=== PATIENT | male | born 1950 | race African-American/Black ===

== ENCOUNTER 2020-06-10 17:31 | Inpatient (IN) | payer MEDICARE, MEDICAID ==
[~2020-06-10] VITALS: Ht 185.4 cm; Wt 97.5 kg
[2020-06-10] MEDS ORDERED: SODIUM CHLORIDE 0.9% 1,000 ML IV ONE (17:45)
[2020-06-10] MEDS ORDERED: ONDANSETRON HCL 4MG/2ML INJ IV ONE (17:45)
[2020-06-10 19:12] LABS: HEMATOCRIT 33.9 % (42.0-52.0); HEMOGLOBIN 10.9 g/dL (14.0-18.0); MEAN CORPUSCULAR HEMOGLOBIN 27.5 pg (28.0-32.0); MEAN CORPUSCULAR VOLUME 85.8 fL (80.0-94.0); PLATELET 307 x1000/uL (130-400); RED BLOOD CELL COUNT 3.96 mill/uL (4.7-6.1); RED CELL DISTRIBUTION WIDTH 17.3 % (11.6-14.6)
[2020-06-10 19:15] LABS: CHLORIDE 105 mEq/L (98-107)
[2020-06-10] MEDS ORDERED: AMOXICILLIN/POTASSIUM CLAVULANATE 875/125MG TAB PO ONE (20:45)
[2020-06-10 21:28] LABS: CLARITY URINE CLEAR (CLEAR); COLOR URINE YELLOW (YELLOW); KETONES URINE TRACE (NEGATIVE); LEUKOCYTE ESTERASE URINE NEGATIVE (NEGATIVE); NITRITE URINE NEGATIVE (NEGATIVE); OCCULT BLOOD URINE NEGATIVE (NEGATIVE); PH URINE 5.5 (4.5-8.0); PROTEIN URINE 2+ (NEGATIVE); SPECIFIC GRAVITY URINE 1.018 (1.005-1.030)
[2020-06-10 21:43] LABS: *AMPHETAMINES SCREEN URINE NEGATIVE (NEGATIVE); *BARBITURATES SCREEN URINE NEGATIVE (NEGATIVE); *BENZODIAZEPINES SCREEN URINE NEGATIVE (NEGATIVE); *COCAINE SCREEN URINE NEGATIVE (NEGATIVE)
[2020-06-10 21:44] LABS: CANNABINOID URINE SCREEN NEGATIVE (NEGATIVE); METHADONE URINE SCREEN NEGATIVE (NEGATIVE); OPIATES URINE SCREEN PRESUMTIVE POSITIVE (NEGATIVE); PHENCYCLIDINE URINE SCREEN NEGATIVE (NEGATIVE)
[2020-06-10] MEDS ORDERED: ACETAMINOPHEN 325MG TABLET PO PRN (23:00)
[2020-06-10] MEDS ORDERED: HYDRALAZINE 20MG/ML VIAL IV PRN (23:00)
[2020-06-10] MEDS: SODIUM CHLORIDE 0.45% 1,000 ML IV SCH (23:00)
[2020-06-10] MEDS ORDERED: LORAZEPAM 2MG/ML CPJ IV PRN (23:00)
[2020-06-10] MEDS ORDERED: GUAIFENESIN 200MG/10ML SUGAR FREE UDC PO PRN (23:00)
[2020-06-10] MEDS ORDERED: DIPHENHYDRAMINE 50MG/ML VIAL IV PRN (23:00)
[2020-06-10] MEDS ORDERED: IPRATROPIUM/ALBUTEROL 0.5-3(2.5)MG/3ML NEB HHN PRN (23:00)
[2020-06-10] MEDS ORDERED: MAGNESIUM/ALUMINUM HYDROXIDE/SIMETHICONE 30ML UDC PO PRN (23:00)
[2020-06-10] MEDS ORDERED: CLONIDINE 0.1MG TABLET PO PRN (23:00)
[2020-06-10] MEDS ORDERED: ONDANSETRON HCL 4MG/2ML INJ IV PRN (23:00)
[2020-06-10] MEDS ORDERED: DOCUSATE SODIUM 100MG CAPSULE PO PRN (23:00)
[2020-06-10] MEDS ORDERED: ENOXAPARIN 40MG/0.4ML SYR SUBCUT SCH (23:30)
[2020-06-11 04:00] VITALS: BP 122/79
[2020-06-11 04:39] LABS: BASOPHILS % 0.2 % (0.0-2.0); EOSINOPHILS % 0.1 % (0.0-5.0); HEMATOCRIT. 29.9 % (42.0-52.0); HEMOGLOBIN. 9.9 g/dL (14.0-18.0); MEAN CORPUSCULAR HEMOGLOBIN 27.5 pg (28.0-32.0); MEAN CORPUSCULAR VOLUME 82.9 fL (80.0-94.0); MONOCYTES % 12.3 % (2.0-8.0); NEUTROPHILS % 79.4 % (40.0-76.0); PLATELET 258 x1000/uL (130-400); RED BLOOD CELL COUNT 3.61 mill/uL (4.7-6.1); RED CELL DISTRIBUTION WIDTH 17.4 % (11.6-14.6)
[2020-06-11 04:43] LABS: CHLORIDE 108 mEq/L (98-107)
[2020-06-11 06:00] VITALS: BP 122/79
[2020-06-11] MEDS: SODIUM CHLORIDE 0.9% INJ 3ML FLUSH IVF SCH ×3 (06:15→22:00)
[2020-06-11 08:34] VITALS: BP 105/66
[2020-06-11] MEDS: PIPERACILLIN/TAZ 3.375G PREMIX 50 ML IV SCH ×2 (10:21→18:30)
[2020-06-11 11:29] VITALS: BP 102/64
[2020-06-11] MEDS ORDERED: AMLO10TA80 MT (11:57)
[2020-06-11] MEDS ORDERED: CALC-586 MT (11:57)
[2020-06-11] MEDS ORDERED: HYDR-4134 PO (11:57)
[2020-06-11] MEDS ORDERED: HYDR25TA MT (12:00)
[2020-06-11] MEDS ORDERED: THIA50TA12 PO (12:00)
[2020-06-11] MEDS ORDERED: LEVE500T98 MT (12:00)
[2020-06-11] MEDS ORDERED: LACT10SO6 MT (12:00)
[2020-06-11 16:19] VITALS: BP 112/55
[2020-06-11] MEDS ORDERED: ENOXAPARIN 40MG/0.4ML SYR SUBCUT SCH (17:00)
[2020-06-11] MEDS: SODIUM CHLORIDE 0.45% 1,000 ML IV SCH (18:30)
[2020-06-11 20:53] VITALS: BP 111/61
[2020-06-12] MEDS: PIPERACILLIN/TAZ 3.375G PREMIX 50 ML IV SCH (02:30)
[2020-06-12] MEDS: SODIUM CHLORIDE 0.9% INJ 3ML FLUSH IVF SCH ×3 (05:10→21:22)
[2020-06-12 08:51] VITALS: BP 95/60
[2020-06-12] MEDS ORDERED: ENOXAPARIN 30MG/0.3ML SYR SUBCUT SCH (09:00)
[2020-06-12] MEDS: PIPERACILLIN/TAZOBACTAM 3.375 G in DEXT 5% WATER 100 ML IV SCH ×2 (11:18→17:33)
[2020-06-12] MEDS ORDERED: PIPERACILLIN/TAZ 3.375G PREMIX 50 ML IV SCH (12:00)
[2020-06-12 12:19] VITALS: BP 95/61
[2020-06-12] MEDS: SODIUM CHLORIDE 0.45% 1,000 ML IV SCH (15:00)
[2020-06-12 16:18] VITALS: BP 117/68
[2020-06-12 20:00] VITALS: BP 111/77
[2020-06-13] VITALS: BP 138/74
[2020-06-13] MEDS: PIPERACILLIN/TAZOBACTAM 3.375 G in DEXT 5% WATER 100 ML IV SCH ×2 (00:12→06:00)
[2020-06-13 04:00] VITALS: BP 120/69
[2020-06-13] MEDS: SODIUM CHLORIDE 0.9% INJ 3ML FLUSH IVF SCH (06:00)
[2020-06-13] MEDS: SODIUM CHLORIDE 0.45% 1,000 ML IV SCH (07:45)
[2020-06-13 08:00] VITALS: BP 117/90
[2020-06-13] MEDS ORDERED: ENOXAPARIN 40MG/0.4ML SYR SUBCUT SCH (09:00)
[2020-06-13 10:42] VITALS: BP 117/90
== END 2020-06-13 12:45 | disposition home or self-care (01) | DRG 917 ==
LOC: ER 17:31 → EDBEDREQ 21:14 → ENRESERV 06-11 03:45 → 6WST 06-11 04:57
PROVIDERS: ADMIT Internal Medicine; ATTEND Internal Medicine
DX: T50.901A Poisoning by unspecified drugs, medicaments and biological substances, accidental (unintentional), initial encounter (principal); J69.0 Pneumonitis due to inhalation of food and vomit; N17.0 Acute kidney failure with tubular necrosis; R65.10 Systemic inflammatory response syndrome (SIRS) of non-infectious origin without acute organ dysfunction; G93.40 Encephalopathy, unspecified; E46 Unspecified protein-calorie malnutrition; D32.9 Benign neoplasm of meninges, unspecified; R26.9 Unspecified abnormalities of gait and mobility; R56.9 Unspecified convulsions; M19.90 Unspecified osteoarthritis, unspecified site; D64.9 Anemia, unspecified; I10 Essential (primary) hypertension; F17.200 Nicotine dependence, unspecified, uncomplicated; Z68.28 Body mass index [BMI] 28.0-28.9, adult; S91.112A Laceration without foreign body of left great toe without damage to nail, initial encounter; X58.XXXA Exposure to other specified factors, initial encounter; Y93.89 Activity, other specified; Y92.89 Other specified places as the place of occurrence of the external cause; Y99.8 Other external cause status
CPT/HCPCS: 36415; 71045; 80053; 80305; 81003; 82962; 85025; 85027; 87077; 87186; 93005; 99283; 99285; J1200; J1650; J2405; J2543; J7030; J7060